=== PATIENT | male | born 1980 | race Caucasian/White ===

== ENCOUNTER 2017-03-29 16:15 | Emergency (ER) | payer OTHER, SELFPAY ==
[2017-03-29 16:47] VITALS: BP 129/76; RESP 18; TEMP 97.8; O2SAT 100
--- NOTE | 2017-03-29 17:07 | ED PDOC ---
HPI: Headache Time Seen by Provider: 03/29/17 16:53 Chief Complaint (Nursing): Headache History Per: Patient History/Exam Limitations: no limitations Onset/Duration Of Symptoms: Days (x 1 week ), Intermittent Episodes Additional Complaint(s): Kalin Galarza is a 36 year old male, with no previous medical history, who presents to the ED with complaints of a headache intermittently ongoing for the past week. Patient also states to experiencing numbness of the forehead intermittently which is sometimes accompanied by the headache and sometimes not. Patient states these episodes last from 2 minutes to an hour. Patient reports an episode prior to arrival but states symptoms resolved spontaneously and is asymptomatic at the moment. Patient denies changes in speech, gait, numbness, tingling, or weakness anywhere else in his body. Patient states to also experiencing an increase in perspiration for the past month. Patient reports no family history of stroke. PMD: [facility] Past Medical History Reviewed: Historical Data, Nursing Documentation, Vital Signs Vital Signs: Last Vital Signs Temp 97.8 F 03/29/17 16:41 Pulse 80 03/29/17 16:41 Resp 18 03/29/17 16:41 BP 129/76 03/29/17 16:41 Pulse Ox 100 03/29/17 16:41 - Medical History PMH: No Chronic Diseases - Surgical History Surgical History: No Surg Hx - Family History Family History: States: Unknown Family Hx - Home Medications Home Medications: Ambulatory Orders Medication Instructions Recorded Metoclopramide Hydrochloride 10 mg PO Q6 PRN #20 tab 11/20/15 [Reglan] Tramadol Hydrochloride [Tramadol 50 mg PO Q6H PRN #20 tab 11/20/15 HCl] - Allergies Allergies/Adverse Reactions: Allergies Allergy/AdvReac Type Severity Reaction Status Date / Time No Known Allergies Allergy Verified 11/20/15 20:50 Review of Systems ROS Statement: Except As Marked, All Systems Reviewed And Found Negative Neurological: Positive for: Numbness (forehead), Headache. Negative for: Incoordination, Change in Speech Physical Exam - Reviewed Nursing Documentation Reviewed: Yes Vital Signs Reviewed: Yes - Physical Exam Appears: Positive for: Well, Non-toxic, No Acute Distress Head Exam: Positive for: ATRAUMATIC, NORMAL INSPECTION, NORMOCEPHALIC Skin: Positive for: Normal Color, Warm, Dry Eye Exam: Positive for: Normal appearance, EOMI, PERRL. Negative for: Nystagmus ENT: Positive for: Normal ENT Inspection Neck: Positive for: Normal, Painless ROM, Supple Cardiovascular/Chest: Positive for: Regular Rate, Rhythm Respiratory: Positive for: CNT, Normal Breath Sounds Pulses-Dorsalis Pedis (L): 2+ Pulses-Dorsalis Pedis (R): 2+ Pulses-Radial (L): 2+ Pulses-Radial (R): 2+ Extremity: Positive for: Normal ROM, Capillary Refill (< 2 seconds), Other ( Strength 5/5 in all extremities ). 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 Negative for: Motor/Sensory Deficits , Facial Droop - Laboratory Results Result Diagrams: 03/29/17 17:25 03/29/17 17:25 - ECG ECG Rhythm: Positive for: Sinus Rhythm Interpretation Of ECG: Peak t-wave at lead 2 Rate: 70 (bpm) O2 Sat by Pulse Oximetry: 100 (RA) Pulse Ox Interpretation: Normal - Progress ED Course And Treament: HEAD CT: NAD Medical Decision Making Medical Decision Making: Initial Impression: headache Initial Plan: * CT head w/o contrast * EKG * labs * magnesium * thyroid stimulating hormone * Troponin I * reevaluation Scribe Attestation: Documented by Rere Wasserman, acting as a scribe for Ayan Koenig PA-C. Provider Scribe Attestation: All medical record entries made by the Scribe were at my direction and personally dictated by me. I have reviewed the chart and agree that the record accurately reflects my personal performance of the history, physical exam, medical decision making, and the department course for this patient. I have also personally directed, reviewed, and agree with the discharge instructions and disposition. Disposition - Clinical Impression Clinical Impression: Headache - Patient ED Disposition Is Patient to be Admitted: No - Disposition Referrals: [facility] [Outside] Disposition: Routine/Home Disposition Time: 19:04 Condition: FAIR Instructions: Tension Headache (ED)
[2017-03-29 17:19] VITALS: PULSE 70
--- NOTE | 2017-03-29 17:43 | CT ---
PROCEDURE: CT HEAD WITHOUT CONTRAST. HISTORY: NUMBNESS/HEADACHE COMPARISON: Comparison made with prior CT scan brain 11/20/2015. TECHNIQUE: Axial computed tomography images were obtained through the head/brain without intravenous contrast. Radiation dose: Total exam DLP = 853.9 mGy-cm. This CT exam was performed using one or more of the following dose reduction techniques: Automated exposure control, adjustment of the mA and/or kV according to patient size, and/or use of iterative reconstruction technique. FINDINGS: HEMORRHAGE: No acute parenchymal, subarachnoid or extra-axial hemorrhage. BRAIN: No mass effect or edema. No atrophy or chronic microvascular ischemic changes. VENTRICLES: Unremarkable. No hydrocephalus. CALVARIUM: Unremarkable. PARANASAL SINUSES: Unremarkable as visualized. No significant inflammatory changes. MASTOID AIR CELLS: Unremarkable as visualized. No inflammatory changes. OTHER FINDINGS: None. IMPRESSION: No acute intracranial hemorrhage.
[2017-03-29 17:51] LABS: BASO # 0.1 K/uL (0.0-0.2); BASO % 0.9 % (0.0-2.0); EOS # 0.1 K/uL (0.0-0.7); EOS % 0.9 % (0.0-4.0); HEMATOCRIT 48.1 % (35.0-51.0); LYMPH # 2.8 K/uL (1.0-4.3); LYMPH % 39.6 % (20.0-40.0); MEAN CELL VOLUME 94.2 fl (80.0-94.0); MEAN CORPUSCULAR HEMOGLOBIN 31.3 pg (27.0-31.0); MEAN CORPUSCULAR HGB CONC 33.2 g/dL (33.0-37.0); MEAN PLATELET VOLUME 8.7 fl (7.2-11.7); MONO # 0.5 K/uL (0.0-0.8); MONO % 7.7 % (0.0-10.0); NEUT # 3.6 K/uL (1.8-7.0); NEUT % 50.9 % (50.0-75.0); NRBC % 0.1 % (0.0-0.0)
[2017-03-29 18:06] LABS: ALB/GLOB RATIO 1.3 (1.0-2.1); ALKALINE PHOSPHATASE 76 U/L (38-126); ALT/SGPT 52 U/L (21-72); AST/SGOT 36 U/L (17-59); BILIRUBIN,TOTAL 0.5 mg/dl (0.2-1.3); BLOOD UREA NITROGEN 24 mg/dl (9-20); CARBON DIOXIDE 26 mmol/L (22-30); CHLORIDE 103 mmol/L (98-107); GFR AFRICAN-AMERICAN > 60; GLUCOSE,RANDOM 98 mg/dL (75-110); POTASSIUM 3.9 MMOL/L (3.6-5.0); SODIUM 140 mmol/l (132-148); TOTAL PROTEIN 7.6 G/DL (6.3-8.2)
[2017-03-29 18:40] LABS: THYROID STIMULATING HORMONE 0.96 mIU/ML (0.46-4.68)
--- NOTE | 2017-03-30 16:16 | CARD ---
APPROVED REPORT EKG Measurement Heart [id number] <Conclusion> Sinus rhythm with marked sinus arrhythmia Otherwise normal ECG
== END 2017-03-29 19:41 | disposition home or self-care (01) ==
LOC: H.ER 16:15
DX: R51 Headache (principal); R20.0 Anesthesia of skin